=== PATIENT | female | born 1990 | race Caucasian/White ===

== ENCOUNTER 2019-01-08 11:08 | Inpatient (IN) | payer MEDICARE, MEDICAID ==
[2019-01-08] MEDS ORDERED: Albuterol 8 GM Inhaler INH PRN (13:21)
--- NOTE | 2019-01-08 13:31 | PCM.HP.2 ---
H&P History of Present Illness - General Date of Service: 01/08/19 Admit Problem/Dx: Admission Diagnosis/Problem Admission Diagnosis/Problem Abdominal abscess Abdominal wound, Dressing Changes and IV antibiotics Source of Information: Patient History Limitations: Reports: Altered Mental Status (She has had multiple concussions and alcohol abuse, her memory is poor per her report) - History of Present Illness Initial Comments - Free Text/Narative: Patient is being admitted to [facility] care today for abdominal wound dressing changes and IV antibiotics for Vancomycin. Patient has abdominal abscess due to foreign body. This was believes to have been related to a previous g-tube. She has an open wound to the abdomen, which is covered with a dressing. She requires daily dressing changes to this area. She has no abdominal pain or concerns with this. She has a colostomy as well. She is able to care for this herself. She was diagnosed with MRSA+ bacteremia and is receiving Vancomycin TID. This is scheduled to go through 01/20/19. She receives this via a PICC line. Patient also has a seizure that started this episode of care, while awaiting sentencing. She was treated with Keppra and has been seizure free. She was prophylactic treated with Rocephin at [place] for aspiration pneumonia post seizure. She never developed pneumonia symptoms. She will be here for about 12 days for IVs and abdominal wound care. - Related Data Allergies/Adverse Reactions: Allergies Allergy/AdvReac Type Severity Reaction Status Date / Time sumatriptan Allergy Other Verified 01/08/19 11:00 Home Medications: Home Meds Acetaminophen [Pain & Fever] 500 mg PO Q4HR PRN 01/08/19 [History] Albuterol Sulfate [Proair Hfa] 2 puff INH Q4HR PRN 01/08/19 [History] Calcium Carbonate [Calcium] 1,000 mg PO DAILY 01/08/19 [History] Folic Acid 1 mg PO DAILY 01/08/19 [History] Heparin Sodium,Porcine/PF [Heparin 500 Unit/5 ml (100/ml)] 500 units IV ASDIRECTED PRN 01/08/19 [History] LORazepam [Ativan] 2 mg IM Q2HR PRN 01/08/19 [History] Magnesium Oxide [Magnesium] 400 mg PO BID 01/08/19 [History] Nicotine [Nicotine Patch] 21 mg TD DAILY 01/08/19 [History] Sennosides/Docusate Sodium [Senna-Docusate Sodium Tablet] 2 tab PO BID 01/08/19 [History] Sertraline [Zoloft] 150 mg PO DAILY 01/08/19 [History] Thiamine [Vitamin B-1] 100 mg PO BID 01/08/19 [History] Vancomycin/0.9 % Sod Chloride [Vanco 1 Gram/250 ml-0.9% NaCl] 1 gm IV Q8HR 01/08 [History] Vitamin B Complex [B Complex] 1 tab PO DAILY 01/08/19 [History] cloNIDine [Catapres] 0.1 mg PO BEDTIME 01/08/19 [History] diphenhydrAMINE HCl [Benadryl] 25 mg PO Q6HR PRN 01/08/19 [History] hydrOXYzine HCl [Hydroxyzine HCl] 25 mg PO TID PRN 01/08/19 [History] levETIRAcetam [Keppra] 1,000 mg PO BID 01/08/19 [History] Past Medical History Cardiovascular History: Reports: Hypertension Respiratory History: Reports: Asthma, Intubation, Previous, Pneumonia, Recurrent Gastrointestinal History: Reports: Other (See Below) Other Gastrointestinal History: Abscess of liver Genitourinary History: Reports: Other (See Below) Other Genitourinary History: Acute Kidney disease Neurological History: Reports: Migraines Psychiatric History: Reports: Addiction, Anxiety, Depression, Emotional Problems , Suicide Attempt Hematologic History: Reports: B12 Deficiency, Folic Acid, Iron Deficiency - Past Surgical History HEENT Surgical History: Reports: Oral Surgery GI Surgical History: Reports: Bariatric Procedure, Colostomy Social & Family History - Tobacco Use Smoking Status *Q: Former Smoker Years of Tobacco use: 17 Packs/Tins Daily: 1 Used Tobacco, but Quit: Yes Month/Year Tobacco Last Used: 11/2018 Second Hand Smoke Exposure: No - Caffeine Use Caffeine Use: Reports: Coffee, Soda - Alcohol Use Days Per Week of Alcohol Use: 7 Number of Drinks Per Day: 20 Total Drinks Per Week: 140 Date of Last Drink: 12/21/18 - Recreational Drug Use Recreational Drug Use: Yes Recreational Drug Type: Reports: Amphetamines (Speed), Heroin, Marijuana/Hashish , Methamphetamine Recreational Drug Use Frequency: Daily H&P Review of Systems - Review of Systems: Review Of Systems: See Below General: Reports: No Symptoms HEENT: Reports: No Symptoms Pulmonary: Reports: No Symptoms Cardiovascular: Reports: No Symptoms Gastrointestinal: Reports: No Symptoms, Diarrhea (This is expected with her colostomy) Genitourinary: Reports: No Symptoms Musculoskeletal: Reports: Back Pain (Occasionally, Tylenol and walking around are helpful) Skin: Reports: Wound Psychiatric: Reports: No Symptoms Neurological: Reports: Seizure, Other (She has delayed processes due to concussions and loss of memory) Immunologic: Reports: No Symptoms Exam - Exam Exam: See Below - Exam Quality Assessment: Central Line/PICC General: Alert, Oriented, Cooperative HEENT: Conjunctiva Clear, EACs Clear, EOMI, Hearing Intact, Mucosa Moist & Mullens , Pupils Equal, Pupils Reactive Neck: Supple, Trachea Midline Lungs: Clear to Auscultation, Normal Respiratory Effort Cardiovascular: Regular Rate, Regular Rhythm, Normal S1, Normal S2 GI/Abdominal Exam: Normal Bowel Sounds, Soft, Non-Tender, No Distention, Other ( Colostomy bag present) (Female) Exam: Deferred Rectal (Female) Exam: Deferred Back Exam: Normal Inspection, Full Range of Motion Extremities: Normal Inspection, Normal Range of Motion, No Pedal Edema Skin: Wound Neuro Extensive - Mental Status: Alert, Oriented x3, Memory Loss-Remote Events Psychiatric: Alert, Normal Affect, Normal Mood - Problem List (1) Open wound of abdominal wall SNOMED Code(s): 358316429 ICD Code: S31.109A - UNSP OPN WND ABD WALL, UNSP Q W/O PENET PERIT CAV, INIT Status: Acute Current Visit: Yes Problem Details: Dressing chagnes will be completed aily along wtih TID Vancomycin for MRSA+ skin infection. She has orders for Twice weekly creatinine and Vanco peak/trough levels. Vancomycin is scheduled to be completed on 01/20/19. (2) MRSA bacteremia SNOMED Code(s): 48607971857352079 ICD Code: R78.81 - BACTEREMIA Status: Acute Current Visit: Yes Problem Details: patient will receive her antibiotics of Vancomycin TID. Last dose is scheduled for 01/20/19. (3) Status epilepticus SNOMED Code(s): 852575204 ICD Code: G40.901 - EPILEPSY, UNSP, NOT INTRACTABLE, WITH STATUS EPILEPTICUS Status: Acute Current Visit: Yes Problem Details: Patient had seizure while in custody. She was placed on keppra and has been seizure free. She was given prophylactic doses of Rocephin while in [place] for possible aspiration pneumonia. No breathing difficulties noted. (4) Hypomagnesemia SNOMED Code(s): 896911243 ICD Code: E83.42 - HYPOMAGNESEMIA Status: Acute Current Visit: Yes Problem Details: Monitor levels of Magnesium along with other vitamins and electrolytes. Has a hsitory of malnutrition r/t gastric bypass. (5) History of gastric bypass SNOMED Code(s): 169094603 ICD Code: Z98.84 - BARIATRIC SURGERY STATUS Status: Acute Current Visit: Yes Problem Details: Will monitor weight and nutrition levels via lab work. Has a history of malnutrition post gastric bypass. Problem List Initiated/Reviewed/Updated: Yes Orders Last 24hrs: Active Orders 24 hr Category Date Time Status Patient Status [ADT] Routine ADT 01/08/19 13:16 Ordered Ambulate [RC] ASDIRECTED Care 01/08/19 13:16 Ordered Communication Order [RC] ASDIRECTED Care 01/08/19 13:19 Ordered Dressing Change [Wound Care] [RC] DAILY Care 01/08/19 13:20 Ordered Height and Weight [RC] PER UNIT ROUTINE Care 01/08/19 13:18 Ordered Intake and Output [RC] ASDIRECTED Care 01/08/19 13:16 Ordered Oxygen Therapy [RC] PRN Care 01/08/19 13:16 Ordered Up ad Olga [RC] ASDIRECTED Care 01/08/19 13:16 Ordered VTE/DVT Education [RC] PER UNIT ROUTINE Care 01/08/19 13:16 Ordered Vital Signs [RC] PER UNIT ROUTINE Care 01/08/19 13:16 Ordered Regular Diet [DIET] Diet 01/08/19 Dinner Ordered Acetaminophen [Tylenol Extra Strength] Med 01/08/19 13:21 Ordered 500 mg PO Q4HR PRN Albuterol [Ventolin HFA] Med 01/08/19 13:21 Ordered 2 puff INH Q4HR PRN Calcium Carbonate [Calcium] Med 01/09/19 08:00 Ordered 1,000 mg PO DAILY Docusate Sodium/Sennosides [Senna Plus] Med 01/08/19 18:00 Ordered 2 tab PO BID Folic Acid Med 01/09/19 08:00 Ordered 1 mg PO DAILY Heparin Sodium [Heparin Lock Flush 100 Units/ML] Med 01/08/19 13:21 Ordered 300 units FLUSH ASDIRECTED PRN LORazepam [Ativan] Med 01/08/19 13:21 Ordered 2 mg IM Q2HR PRN Magnesium Oxide [Magnesium] Med 01/08/19 18:00 Ordered 400 mg PO BID Nicotine [Habitrol] Med 01/09/19 08:00 Ordered 21 mg TRDERM DAILY Sertraline [Zoloft] Med 01/09/19 08:00 Ordered 150 mg PO DAILY Thiamine [Vitamin B-1] Med 01/08/19 18:00 Ordered 100 mg PO BID Vancomycin/0.9 % Sod Chloride [Vanco 1 Gram/250 ml-0.9% Med 01/08/19 16:00 Ordered NaCl] 1 gm IV Q8HR Vitamin B Complex [B Complex] Med 01/09/19 08:00 Ordered 1 tab PO DAILY cloNIDine [Catapres] Med 01/08/19 20:00 Ordered 0.1 mg PO BEDTIME diphenhydrAMINE [Benadryl] Med 01/08/19 13:21 Ordered 25 mg PO Q6HR PRN hydrOXYzine HCl [Atarax] Med 01/08/19 13:21 Ordered 25 mg PO TID PRN levETIRAcetam [Keppra] Med 01/08/19 18:00 Ordered 1,000 mg PO BID Resuscitation Status Routine Resus Stat 01/08/19 13:16 Ordered - Mortality Measure Prognosis:: Good
[2019-01-08] MEDS: Sodium Chloride 0.9% 10 ML Syringe FLUSH SCH ×4 (15:20→23:05)
[2019-01-08] MEDS: diphenhydrAMINE 25 MG Cap PO PRN ×2 (15:20→21:09)
[2019-01-08] MEDS ORDERED: SOD CHLORIDE IV SCH (16:00)
[2019-01-08] MEDS ORDERED: VANCOMYCIN IV SCH (16:00)
[2019-01-08] MEDS ORDERED: [UNRECOGNIZED DRUG - OTHER] IV SCH (16:00)
[2019-01-08] MEDS: Sodium Chloride 0.9% 10 ML Syringe FLUSH PRN (17:09)
[2019-01-08] MEDS: Magnesium Oxide 400 MG Tab PO SCH (18:03)
[2019-01-08] MEDS: Thiamine 100 MG Tab PO SCH (18:03)
[2019-01-08] MEDS: levETIRAcetam 500 MG Tab PO SCH (18:04)
[2019-01-08] MEDS: cloNIDine 0.1 MG Tab PO SCH (20:22)
[2019-01-08] MEDS: Acetaminophen 500 MG Tab PO PRN (20:22)
[2019-01-08] MEDS: Aluminum Hydroxide/Magnesium Hydroxide/Simethicone Susp 30 ML Cup PO PRN (20:23)
[2019-01-09] MEDS: hydrOXYzine HCl 25 MG Tab PO PRN (01:51)
[2019-01-09] MEDS: diphenhydrAMINE 25 MG Cap PO PRN ×3 (05:17→21:07)
[2019-01-09] MEDS: Sodium Chloride 0.9% 10 ML Syringe FLUSH SCH ×6 (05:56→22:44)
[2019-01-09] MEDS: levETIRAcetam 500 MG Tab PO SCH ×2 (07:44→17:00)
[2019-01-09] MEDS: Sertraline 50 MG Tab PO SCH (07:45)
[2019-01-09] MEDS: Thiamine 100 MG Tab PO SCH ×2 (07:45→17:01)
[2019-01-09] MEDS: Folic Acid 1 MG Tab PO SCH (07:46)
[2019-01-09] MEDS: Calcium Carbonate 500 MG Tab.Chew PO SCH (07:47)
[2019-01-09] MEDS: Nicotine 21 MG/24 Hr Patch TRDERM SCH (07:48)
[2019-01-09] MEDS: Remove Patch NICOTINE PATCH TRDERM SCH (07:50)
[2019-01-09] MEDS: Vitamin B Complex Tab PO SCH (07:51)
[2019-01-09] MEDS: Magnesium Oxide 400 MG Tab PO SCH ×2 (07:52→17:00)
[2019-01-09] MEDS: Acetaminophen 500 MG Tab PO PRN (08:10)
[2019-01-09] MEDS: Sodium Chloride 0.9% 10 ML Syringe FLUSH PRN (08:15)
[2019-01-09 09:01] LABS: CHLORIDE,CL 106 mmol/L (98-107); SODIUM,NA 140 mmol/L (136-145)
[2019-01-09] MEDS: Aluminum Hydroxide/Magnesium Hydroxide/Simethicone Susp 30 ML Cup PO PRN ×2 (11:07→20:07)
[2019-01-09] MEDS: LORazepam 2 MG/ML SDV IM PRN ×2 (15:59→23:26)
[2019-01-09] MEDS: cloNIDine 0.1 MG Tab PO SCH (20:07)
[2019-01-10] MEDS: Sodium Chloride 0.9% 10 ML Syringe FLUSH SCH ×6 (06:05→22:34)
[2019-01-10] MEDS: Sertraline 50 MG Tab PO SCH ×2 (06:09→08:32)
[2019-01-10] MEDS: Calcium Carbonate 500 MG Tab.Chew PO SCH ×2 (06:10→08:32)
[2019-01-10] MEDS: Aluminum Hydroxide/Magnesium Hydroxide/Simethicone Susp 30 ML Cup PO PRN ×2 (07:52→21:02)
[2019-01-10] MEDS: Folic Acid 1 MG Tab PO SCH (07:54)
[2019-01-10] MEDS: Vitamin B Complex Tab PO SCH (07:54)
[2019-01-10] MEDS: Thiamine 100 MG Tab PO SCH ×2 (07:55→17:44)
[2019-01-10] MEDS: levETIRAcetam 500 MG Tab PO SCH ×2 (07:55→17:44)
[2019-01-10] MEDS: Magnesium Oxide 400 MG Tab PO SCH ×2 (07:55→17:44)
[2019-01-10] MEDS: Nicotine 21 MG/24 Hr Patch TRDERM SCH (07:56)
[2019-01-10] MEDS: Remove Patch NICOTINE PATCH TRDERM SCH (07:58)
[2019-01-10] MEDS: LORazepam 2 MG/ML SDV IM PRN ×2 (08:09→14:54)
[2019-01-10] MEDS: Sodium Chloride 0.9% 10 ML Syringe FLUSH PRN ×2 (13:40→14:47)
[2019-01-10] MEDS: diphenhydrAMINE 25 MG Cap PO PRN ×2 (14:55→21:02)
[2019-01-10] MEDS: Acetaminophen 500 MG Tab PO PRN ×2 (14:55→21:01)
[2019-01-10] MEDS: cloNIDine 0.1 MG Tab PO SCH (19:47)
[2019-01-10] MEDS: hydrOXYzine HCl 25 MG Tab PO PRN (21:01)
[2019-01-10] MEDS: LORazepam 1 MG Tab PO PRN (21:02)
[2019-01-11] MEDS: Acetaminophen 500 MG Tab PO PRN ×4 (04:58→20:58)
[2019-01-11] MEDS: Sodium Chloride 0.9% 10 ML Syringe FLUSH SCH ×6 (05:01→22:42)
[2019-01-11] MEDS: Vitamin B Complex Tab PO SCH (07:24)
[2019-01-11] MEDS: Calcium Carbonate 500 MG Tab.Chew PO SCH (07:24)
[2019-01-11] MEDS: Thiamine 100 MG Tab PO SCH ×2 (07:25→17:34)
[2019-01-11] MEDS: Nicotine 21 MG/24 Hr Patch TRDERM SCH (07:25)
[2019-01-11] MEDS: levETIRAcetam 500 MG Tab PO SCH ×2 (07:25→17:34)
[2019-01-11] MEDS: Folic Acid 1 MG Tab PO SCH (07:25)
[2019-01-11] MEDS: Magnesium Oxide 400 MG Tab PO SCH ×2 (07:25→17:33)
[2019-01-11] MEDS: Sertraline 50 MG Tab PO SCH (07:25)
[2019-01-11] MEDS: Remove Patch NICOTINE PATCH TRDERM SCH (07:26)
[2019-01-11] MEDS: Aluminum Hydroxide/Magnesium Hydroxide/Simethicone Susp 30 ML Cup PO PRN ×2 (07:26→20:59)
[2019-01-11] MEDS: LORazepam 1 MG Tab PO PRN ×2 (09:02→17:34)
[2019-01-11] MEDS: diphenhydrAMINE 25 MG Cap PO PRN ×2 (09:08→16:28)
[2019-01-11] MEDS: Sodium Chloride 0.9% 10 ML Syringe FLUSH PRN (09:45)
[2019-01-11] MEDS: hydrOXYzine HCl 25 MG Tab PO PRN (20:58)
[2019-01-11] MEDS: cloNIDine 0.1 MG Tab PO SCH (20:59)
[2019-01-12] MEDS: Sodium Chloride 0.9% 10 ML Syringe FLUSH SCH ×6 (06:13→23:31)
[2019-01-12] MEDS: diphenhydrAMINE 25 MG Cap PO PRN ×3 (06:19→21:10)
[2019-01-12] MEDS: Calcium Carbonate 500 MG Tab.Chew PO SCH (07:46)
[2019-01-12] MEDS: Folic Acid 1 MG Tab PO SCH (07:47)
[2019-01-12] MEDS: Thiamine 100 MG Tab PO SCH ×2 (07:47→17:39)
[2019-01-12] MEDS: Magnesium Oxide 400 MG Tab PO SCH ×2 (07:47→17:39)
[2019-01-12] MEDS: Vitamin B Complex Tab PO SCH (07:47)
[2019-01-12] MEDS: Nicotine 21 MG/24 Hr Patch TRDERM SCH (07:47)
[2019-01-12] MEDS: levETIRAcetam 500 MG Tab PO SCH ×2 (07:47→17:39)
[2019-01-12] MEDS: Sertraline 50 MG Tab PO SCH (07:47)
[2019-01-12] MEDS: Remove Patch NICOTINE PATCH TRDERM SCH (07:48)
[2019-01-12] MEDS: Aluminum Hydroxide/Magnesium Hydroxide/Simethicone Susp 30 ML Cup PO PRN ×3 (07:48→21:10)
[2019-01-12] MEDS: LORazepam 1 MG Tab PO PRN ×2 (11:24→20:01)
[2019-01-12] MEDS: Acetaminophen 500 MG Tab PO PRN ×3 (11:24→21:11)
[2019-01-12] MEDS: cloNIDine 0.1 MG Tab PO SCH (20:02)
[2019-01-13] MEDS: diphenhydrAMINE 25 MG Cap PO PRN ×4 (04:01→23:39)
[2019-01-13] MEDS: Sodium Chloride 0.9% 10 ML Syringe FLUSH SCH ×6 (05:54→23:22)
[2019-01-13] MEDS: Aluminum Hydroxide/Magnesium Hydroxide/Simethicone Susp 30 ML Cup PO PRN ×2 (06:36→17:22)
[2019-01-13] MEDS: Vitamin B Complex Tab PO SCH (07:41)
[2019-01-13] MEDS: Calcium Carbonate 500 MG Tab.Chew PO SCH (07:41)
[2019-01-13] MEDS: Sertraline 50 MG Tab PO SCH (07:41)
[2019-01-13] MEDS: levETIRAcetam 500 MG Tab PO SCH ×2 (07:41→17:21)
[2019-01-13] MEDS: Magnesium Oxide 400 MG Tab PO SCH ×2 (07:41→17:21)
[2019-01-13] MEDS: Thiamine 100 MG Tab PO SCH ×2 (07:41→17:21)
[2019-01-13] MEDS: Nicotine 21 MG/24 Hr Patch TRDERM SCH (07:41)
[2019-01-13] MEDS: Folic Acid 1 MG Tab PO SCH (07:41)
[2019-01-13] MEDS: Remove Patch NICOTINE PATCH TRDERM SCH (07:42)
[2019-01-13] MEDS: Acetaminophen 500 MG Tab PO PRN ×3 (11:11→23:38)
[2019-01-13] MEDS: LORazepam 1 MG Tab PO PRN ×2 (11:12→20:02)
[2019-01-13] MEDS: cloNIDine 0.1 MG Tab PO SCH (20:03)
[2019-01-14] MEDS: Acetaminophen 500 MG Tab PO PRN ×3 (06:04→20:38)
[2019-01-14] MEDS: diphenhydrAMINE 25 MG Cap PO PRN ×3 (06:04→20:38)
[2019-01-14] MEDS: Sodium Chloride 0.9% 10 ML Syringe FLUSH SCH ×5 (06:05→22:53)
[2019-01-14] MEDS: Vitamin B Complex Tab PO SCH (08:08)
[2019-01-14] MEDS: Sertraline 50 MG Tab PO SCH (08:08)
[2019-01-14] MEDS: Folic Acid 1 MG Tab PO SCH (08:08)
[2019-01-14] MEDS: levETIRAcetam 500 MG Tab PO SCH ×2 (08:08→17:16)
[2019-01-14] MEDS: Thiamine 100 MG Tab PO SCH ×2 (08:08→17:16)
[2019-01-14] MEDS: Calcium Carbonate 500 MG Tab.Chew PO SCH (08:08)
[2019-01-14] MEDS: Magnesium Oxide 400 MG Tab PO SCH ×2 (08:09→17:16)
[2019-01-14] MEDS: Nicotine 21 MG/24 Hr Patch TRDERM SCH (08:09)
[2019-01-14] MEDS: Remove Patch NICOTINE PATCH TRDERM SCH (08:10)
[2019-01-14] MEDS: LORazepam 1 MG Tab PO PRN ×2 (08:51→18:18)
[2019-01-14] MEDS: Aluminum Hydroxide/Magnesium Hydroxide/Simethicone Susp 30 ML Cup PO PRN (12:17)
[2019-01-14] MEDS: cloNIDine 0.1 MG Tab PO SCH (20:38)
[2019-01-14] MEDS: hydrOXYzine HCl 25 MG Tab PO PRN (22:53)
[2019-01-15] MEDS: Sodium Chloride 0.9% 10 ML Syringe FLUSH SCH ×7 (00:28→22:24)
[2019-01-15] MEDS: Acetaminophen 500 MG Tab PO PRN ×3 (02:40→20:36)
[2019-01-15] MEDS: LORazepam 1 MG Tab PO PRN ×3 (02:40→22:24)
[2019-01-15] MEDS: diphenhydrAMINE 25 MG Cap PO PRN ×3 (02:40→22:25)
[2019-01-15] MEDS: Vitamin B Complex Tab PO SCH (07:17)
[2019-01-15] MEDS: Magnesium Oxide 400 MG Tab PO SCH ×2 (07:17→17:19)
[2019-01-15] MEDS: Sertraline 50 MG Tab PO SCH (07:17)
[2019-01-15] MEDS: Multivitamin Tab PO SCH (07:17)
[2019-01-15] MEDS: Folic Acid 1 MG Tab PO SCH (07:17)
[2019-01-15] MEDS: Calcium Carbonate 500 MG Tab.Chew PO SCH (07:17)
[2019-01-15] MEDS: Aluminum Hydroxide/Magnesium Hydroxide/Simethicone Susp 30 ML Cup PO PRN ×2 (07:18→17:20)
[2019-01-15] MEDS: levETIRAcetam 500 MG Tab PO SCH ×2 (07:18→17:20)
[2019-01-15] MEDS: Thiamine 100 MG Tab PO SCH ×2 (07:18→17:19)
[2019-01-15] MEDS: Remove Patch NICOTINE PATCH TRDERM SCH (08:58)
[2019-01-15] MEDS: Nicotine 21 MG/24 Hr Patch TRDERM SCH (08:58)
[2019-01-15] MEDS: hydrOXYzine HCl 25 MG Tab PO PRN (17:19)
[2019-01-15] MEDS: cloNIDine 0.1 MG Tab PO SCH (20:36)
[2019-01-16] MEDS: Sodium Chloride 0.9% 10 ML Syringe FLUSH SCH ×8 (00:08→22:54)
[2019-01-16] MEDS: Vitamin B Complex Tab PO SCH (07:25)
[2019-01-16] MEDS: Multivitamin Tab PO SCH (07:25)
[2019-01-16] MEDS: Calcium Carbonate 500 MG Tab.Chew PO SCH (07:25)
[2019-01-16] MEDS: Thiamine 100 MG Tab PO SCH ×2 (07:25→17:00)
[2019-01-16] MEDS: Sertraline 50 MG Tab PO SCH (07:26)
[2019-01-16] MEDS: levETIRAcetam 500 MG Tab PO SCH ×2 (07:26→17:00)
[2019-01-16] MEDS: Folic Acid 1 MG Tab PO SCH (07:27)
[2019-01-16] MEDS: Magnesium Oxide 400 MG Tab PO SCH ×2 (07:28→17:01)
[2019-01-16] MEDS: Remove Patch NICOTINE PATCH TRDERM SCH (07:29)
[2019-01-16] MEDS: Nicotine 21 MG/24 Hr Patch TRDERM SCH (07:30)
[2019-01-16] MEDS: Acetaminophen 500 MG Tab PO PRN ×3 (07:40→21:12)
[2019-01-16] MEDS: Aluminum Hydroxide/Magnesium Hydroxide/Simethicone Susp 30 ML Cup PO PRN ×2 (08:42→17:43)
[2019-01-16] MEDS: LORazepam 1 MG Tab PO PRN ×2 (12:26→21:14)
[2019-01-16] MEDS: diphenhydrAMINE 25 MG Cap PO PRN ×2 (15:20→21:13)
[2019-01-16] MEDS: cloNIDine 0.1 MG Tab PO SCH (21:12)
[2019-01-17] MEDS: Sodium Chloride 0.9% 10 ML Syringe FLUSH SCH ×6 (06:04→23:09)
[2019-01-17] MEDS: Acetaminophen 500 MG Tab PO PRN ×2 (06:08→14:05)
[2019-01-17] MEDS: diphenhydrAMINE 25 MG Cap PO PRN ×3 (06:08→21:32)
[2019-01-17] MEDS: LORazepam 1 MG Tab PO PRN ×3 (06:28→23:20)
[2019-01-17] MEDS: Magnesium Oxide 400 MG Tab PO SCH ×2 (07:19→17:35)
[2019-01-17] MEDS: Calcium Carbonate 500 MG Tab.Chew PO SCH (07:19)
[2019-01-17] MEDS: Multivitamin Tab PO SCH (07:19)
[2019-01-17] MEDS: Sertraline 50 MG Tab PO SCH (07:19)
[2019-01-17] MEDS: Thiamine 100 MG Tab PO SCH ×2 (07:19→17:35)
[2019-01-17] MEDS: levETIRAcetam 500 MG Tab PO SCH ×2 (07:19→17:35)
[2019-01-17] MEDS: Vitamin B Complex Tab PO SCH (07:19)
[2019-01-17] MEDS: Folic Acid 1 MG Tab PO SCH (07:19)
[2019-01-17] MEDS: Aluminum Hydroxide/Magnesium Hydroxide/Simethicone Susp 30 ML Cup PO PRN ×2 (08:16→17:44)
[2019-01-17] MEDS: Nicotine 21 MG/24 Hr Patch TRDERM SCH (17:35)
[2019-01-17] MEDS: Remove Patch NICOTINE PATCH TRDERM SCH (17:35)
[2019-01-17] MEDS: hydrOXYzine HCl 25 MG Tab PO PRN (17:36)
[2019-01-17] MEDS: cloNIDine 0.1 MG Tab PO SCH (21:32)
[2019-01-18] MEDS: Sodium Chloride 0.9% 10 ML Syringe FLUSH SCH ×6 (06:10→23:29)
[2019-01-18] MEDS: Acetaminophen 500 MG Tab PO PRN ×2 (06:13→10:38)
[2019-01-18] MEDS: Vitamin B Complex Tab PO SCH (07:58)
[2019-01-18] MEDS: Folic Acid 1 MG Tab PO SCH (07:58)
[2019-01-18] MEDS: levETIRAcetam 500 MG Tab PO SCH ×2 (07:58→17:57)
[2019-01-18] MEDS: Thiamine 100 MG Tab PO SCH ×2 (07:58→17:58)
[2019-01-18] MEDS: Multivitamin Tab PO SCH (07:58)
[2019-01-18] MEDS: Calcium Carbonate 500 MG Tab.Chew PO SCH (07:58)
[2019-01-18] MEDS: Magnesium Oxide 400 MG Tab PO SCH ×2 (07:58→17:56)
[2019-01-18] MEDS: Sertraline 50 MG Tab PO SCH (07:59)
[2019-01-18] MEDS: Remove Patch NICOTINE PATCH TRDERM SCH (08:02)
[2019-01-18] MEDS: Sodium Chloride 0.9% 10 ML Syringe FLUSH PRN (08:02)
[2019-01-18] MEDS: Nicotine 21 MG/24 Hr Patch TRDERM SCH (08:06)
[2019-01-18] MEDS: LORazepam 1 MG Tab PO PRN ×2 (10:38→19:31)
[2019-01-18] MEDS: diphenhydrAMINE 25 MG Cap PO PRN ×2 (14:54→20:39)
[2019-01-18] MEDS: Aluminum Hydroxide/Magnesium Hydroxide/Simethicone Susp 30 ML Cup PO PRN (18:00)
[2019-01-18] MEDS: cloNIDine 0.1 MG Tab PO SCH (19:32)
[2019-01-19] MEDS: diphenhydrAMINE 25 MG Cap PO PRN ×3 (03:08→21:33)
[2019-01-19] MEDS: Acetaminophen 500 MG Tab PO PRN ×4 (03:08→21:33)
[2019-01-19] MEDS: LORazepam 1 MG Tab PO PRN ×3 (03:38→19:37)
[2019-01-19] MEDS: Sodium Chloride 0.9% 10 ML Syringe FLUSH SCH ×6 (06:23→23:16)
[2019-01-19] MEDS: Sertraline 50 MG Tab PO SCH (07:30)
[2019-01-19] MEDS: Calcium Carbonate 500 MG Tab.Chew PO SCH (07:31)
[2019-01-19] MEDS: levETIRAcetam 500 MG Tab PO SCH ×2 (07:31→17:09)
[2019-01-19] MEDS: Folic Acid 1 MG Tab PO SCH (07:31)
[2019-01-19] MEDS: Thiamine 100 MG Tab PO SCH ×2 (07:31→17:10)
[2019-01-19] MEDS: Vitamin B Complex Tab PO SCH (07:31)
[2019-01-19] MEDS: Magnesium Oxide 400 MG Tab PO SCH ×2 (07:31→17:09)
[2019-01-19] MEDS: Multivitamin Tab PO SCH (07:31)
[2019-01-19] MEDS: Nicotine 21 MG/24 Hr Patch TRDERM SCH (07:35)
[2019-01-19] MEDS: Remove Patch NICOTINE PATCH TRDERM SCH (07:35)
[2019-01-19] MEDS: Sodium Chloride 0.9% 10 ML Syringe FLUSH PRN (07:36)
[2019-01-19] MEDS: Aluminum Hydroxide/Magnesium Hydroxide/Simethicone Susp 30 ML Cup PO PRN (17:13)
[2019-01-19] MEDS: cloNIDine 0.1 MG Tab PO SCH (19:36)
[2019-01-20] MEDS: Acetaminophen 500 MG Tab PO PRN ×5 (04:21→21:23)
[2019-01-20] MEDS: LORazepam 1 MG Tab PO PRN ×3 (04:22→21:27)
[2019-01-20] MEDS: diphenhydrAMINE 25 MG Cap PO PRN ×3 (04:24→17:20)
[2019-01-20] MEDS: Sodium Chloride 0.9% 10 ML Syringe FLUSH SCH ×6 (05:51→23:06)
[2019-01-20] MEDS: Sodium Chloride 0.9% 10 ML Syringe FLUSH PRN (07:36)
[2019-01-20] MEDS: Folic Acid 1 MG Tab PO SCH (07:36)
[2019-01-20] MEDS: Multivitamin Tab PO SCH (07:37)
[2019-01-20] MEDS: Sertraline 50 MG Tab PO SCH (07:37)
[2019-01-20] MEDS: Magnesium Oxide 400 MG Tab PO SCH ×2 (07:37→17:20)
[2019-01-20] MEDS: Thiamine 100 MG Tab PO SCH ×2 (07:37→17:20)
[2019-01-20] MEDS: Calcium Carbonate 500 MG Tab.Chew PO SCH (07:37)
[2019-01-20] MEDS: Vitamin B Complex Tab PO SCH (07:37)
[2019-01-20] MEDS: levETIRAcetam 500 MG Tab PO SCH ×2 (07:37→17:20)
[2019-01-20] MEDS: Remove Patch NICOTINE PATCH TRDERM SCH (07:42)
[2019-01-20] MEDS: Nicotine 21 MG/24 Hr Patch TRDERM SCH (07:43)
[2019-01-20] MEDS: hydrOXYzine HCl 25 MG Tab PO PRN ×2 (08:10→16:11)
[2019-01-20] MEDS: Aluminum Hydroxide/Magnesium Hydroxide/Simethicone Susp 30 ML Cup PO PRN (16:07)
[2019-01-20] MEDS: cloNIDine 0.1 MG Tab PO SCH (20:51)
[2019-01-21] MEDS: diphenhydrAMINE 25 MG Cap PO PRN ×2 (02:36→13:11)
[2019-01-21] MEDS: Sodium Chloride 0.9% 10 ML Syringe FLUSH SCH ×3 (06:04→13:13)
[2019-01-21] MEDS: LORazepam 1 MG Tab PO PRN ×2 (06:04→14:20)
[2019-01-21] MEDS: Acetaminophen 500 MG Tab PO PRN ×2 (06:05→13:11)
[2019-01-21] MEDS: hydrOXYzine HCl 25 MG Tab PO PRN (06:06)
[2019-01-21] MEDS: Folic Acid 1 MG Tab PO SCH (07:55)
[2019-01-21] MEDS: levETIRAcetam 500 MG Tab PO SCH (07:56)
[2019-01-21] MEDS: Nicotine 21 MG/24 Hr Patch TRDERM SCH (07:56)
[2019-01-21] MEDS: Magnesium Oxide 400 MG Tab PO SCH (07:56)
[2019-01-21] MEDS: Multivitamin Tab PO SCH (07:57)
[2019-01-21] MEDS: Remove Patch NICOTINE PATCH TRDERM SCH (07:57)
[2019-01-21] MEDS: Calcium Carbonate 500 MG Tab.Chew PO SCH (07:58)
[2019-01-21] MEDS: Vitamin B Complex Tab PO SCH (07:58)
[2019-01-21] MEDS: Thiamine 100 MG Tab PO SCH (07:58)
[2019-01-21] MEDS: Sertraline 50 MG Tab PO SCH (07:58)
[2019-01-21] MEDS: Aluminum Hydroxide/Magnesium Hydroxide/Simethicone Susp 30 ML Cup PO PRN ×2 (07:58→13:16)
--- NOTE | 2019-01-21 14:06 | PCM.DCSUM1 ---
Discharge Summary - Hospital Course Free Text/Narrative:: Patient is being discharged today from [facility] into the care of her father. He will pick her up and [facility] to the [facility] right away. She was in [facility] care of PICC line antibiotics for abdominal infection that is MRSA +. She had an abdominal wound that was receiving dressing changes and this is healing well. She has an ostomy that she is able to care for self. She is having some skin breakdown noted. She was given instruction about care for this and barrier cream to allow area to heal. Patient is having quite a bit of anxiety today. She has a PRN order for Ativan that she will receive before she goes. We discussed her anxiety. She states that she is anxious about returning to [facility]. She also recently found out her mom , her moved in with another woman and she has a colostomy. She feels like she just has a lot going on at this time. She denies any questions about her care. I advised her to sign a [facility] information at the [facility] so we can forward her hospital records there. She was understanding of this. Diagnosis: Stroke: No - Discharge Data Discharge Date: 01/21/19 Discharge Disposition: Home, Self-Care 01 Condition: Good - Referral to Home Health Primary Care Physician: Zion Simons Sr, MD - Discharge Diagnosis/Problem(s) (1) Open wound of abdominal wall SNOMED Code(s): 569223716 ICD Code: S31.109A - UNSP OPN WND ABD WALL, UNSP Q W/O PENET PERIT CAV, INIT Status: Acute Current Visit: Yes Problem Details: Dressing chagnes will be completed aily along wtih TID Vancomycin for MRSA+ skin infection. She has orders for Twice weekly creatinine and Vanco peak/trough levels. Vancomycin is scheduled to be completed on 01/20/19. (2) MRSA bacteremia SNOMED Code(s): 32919636210210049 ICD Code: R78.81 - BACTEREMIA Status: Acute Current Visit: Yes Problem Details: patient will receive her antibiotics of Vancomycin TID. Last dose is scheduled for 01/20/19. (3) Status epilepticus SNOMED Code(s): 424973925 ICD Code: G40.901 - EPILEPSY, UNSP, NOT INTRACTABLE, WITH STATUS EPILEPTICUS Status: Acute Current Visit: Yes Problem Details: Patient had seizure while in custody. She was placed on keppra and has been seizure free. She was given prophylactic doses of Rocephin while in [place] for possible aspiration pneumonia. No breathing difficulties noted. (4) Hypomagnesemia SNOMED Code(s): 693556402 ICD Code: E83.42 - HYPOMAGNESEMIA Status: Acute Current Visit: Yes Problem Details: Monitor levels of Magnesium along with other vitamins and electrolytes. Has a hsitory of malnutrition r/t gastric bypass. (5) History of gastric bypass SNOMED Code(s): 394299337 ICD Code: Z98.84 - BARIATRIC SURGERY STATUS Status: Acute Current Visit: Yes Problem Details: Will monitor weight and nutrition levels via lab work. Has a history of malnutrition post gastric bypass. - Patient Instructions Diet: Usual Diet as Tolerated Activity: As Tolerated Showering/Bathing: May Shower Notify Provider of: Fever, Increased Pain, Swelling and Redness - Discharge Plan *PRESCRIPTION DRUG MONITORING PROGRAM REVIEWED*: Yes *COPY OF PRESCRIPTION DRUG MONITORING REPORT IN PATIENT JOHNNY: Yes Prescriptions/Med Rec: Albuterol Sulfate [Proair Hfa] 2 puff INH Q4HR PRN #1 [email or web address] PRN Reason: Shortness Of Breath Calcium Carbonate [Calcium] 1,000 mg PO DAILY 30 Days #30 tab.chew cloNIDine [Catapres] 0.1 mg PO BEDTIME 30 Days #30 tablet Folic Acid 1 mg PO DAILY 30 Days #30 tablet hydrOXYzine HCl [Hydroxyzine HCl] 25 mg PO TID PRN 30 Days #30 tablet PRN Reason: Itching levETIRAcetam [Roweepra] 1,000 mg PO BID 30 Days #120 tablet Magnesium Oxide [Magnesium] 400 mg PO BID 30 Days #60 tablet Multivitamins [Tab-A-Bertram] 1 tab PO DAILY 30 Days #30 tablet Nicotine [Nicotine Patch] 21 mg TD DAILY 30 Days #30 patch.td24 Sennosides/Docusate Sodium [Senna-Docusate Sodium Tablet] 2 tab PO BID 30 Days # 120 tablet Sertraline [Zoloft] 150 mg PO DAILY 30 Days #90 tablet Thiamine [Vitamin B-1] 100 mg PO BID 30 Days #60 tablet Vitamin B Complex [B Complex] 1 tab PO DAILY 30 Days #30 tablet Home Medications: Home Meds Acetaminophen [Pain & Fever] 500 mg PO Q4HR PRN 01/08/19 [History] diphenhydrAMINE HCl [Benadryl] 25 mg PO Q6HR PRN 01/08/19 [History] Albuterol Sulfate [Proair Hfa] 2 puff INH Q4HR PRN #1 hfa.aer.ad 01/21/19 [Rx] Alum Hydrox/Mag Hydrox/Simeth [Mag-Al Plus] 30 ml PO QID PRN cup 01/21/19 [Rx] Calcium Carbonate [Calcium] 1,000 mg PO DAILY 30 Days #30 tab.chew 01/21/19 [Rx] Folic Acid 1 mg PO DAILY 30 Days #30 tablet 01/21/19 [Rx] Magnesium Oxide [Magnesium] 400 mg PO BID 30 Days #60 tablet 01/21/19 [Rx] Multivitamins [Tab-A-Bertram] 1 tab PO DAILY 30 Days #30 tablet 01/21/19 [Rx] Nicotine [Nicotine Patch] 21 mg TD DAILY 30 Days #30 patch.td24 01/21/19 [Rx] Sennosides/Docusate Sodium [Senna-Docusate Sodium Tablet] 2 tab PO BID 30 Days # 120 tablet 01/21/19 [Rx] Sertraline [Zoloft] 150 mg PO DAILY 30 Days #90 tablet 01/21/19 [Rx] Thiamine [Vitamin B-1] 100 mg PO BID 30 Days #60 tablet 01/21/19 [Rx] Vitamin B Complex [B Complex] 1 tab PO DAILY 30 Days #30 tablet 01/21/19 [Rx] cloNIDine [Catapres] 0.1 mg PO BEDTIME 30 Days #30 tablet 01/21/19 [Rx] hydrOXYzine HCl [Hydroxyzine HCl] 25 mg PO TID PRN 30 Days #30 tablet 01/21/19 [ Rx] levETIRAcetam [Roweepra] 1,000 mg PO BID 30 Days #120 tablet 01/21/19 [Rx] Oxygen Therapy Mode: Room Air - Discharge Summary/Plan Comment DC Time >30 min.: Yes - General Info Date of Service: 01/21/19 Admission Dx/Problem (Free Text: Abdominal abscess, PICC line antibiotics Functional Status: Reports: Pain Controlled, Tolerating Diet, Ambulating - Review of Systems General: Reports: No Symptoms HEENT: Reports: No Symptoms Pulmonary: Reports: No Symptoms Gastrointestinal: Reports: Diarrhea (ostomy present) Genitourinary: Reports: No Symptoms Musculoskeletal: Reports: Back Pain (this is chronic) Skin: Reports: Other (Mild skin breakdown around ostomy site) Neurological: Reports: No Symptoms, Other (She does have some loss of memory) - Patient Data Vitals - Most Recent: Last Vital Signs Temp 98 F 01/21/19 08:00 Pulse 100 01/21/19 08:00 Resp 16 01/21/19 08:00 BP 133/84 01/21/19 08:00 Pulse Ox 100 01/21/19 08:00 Weight - Most Recent: 137 lb I&O - Last 24 hours: Intake & Output 01/20/19 01/21/19 01/21/19 22:59 06:59 14:59 Intake Total 500 600 880 Balance 500 600 880 Lab Results - Last 24 hrs: Laboratory Results - last 24 hr 01/21/19 Range/Units 08:45 WBC 6.3 (4.0-10.2) K/uL RBC 3.86 (3.77-5.09) M/uL Hgb 12.0 (11.7-15.5) g/dL Hct 37.5 (34.0-46.0) % MCV 97.2 (84.0-98.0) fL MCH 31.1 (28.2-33.3) pg MCHC 32.0 (31.7-36.0) g/dL RDW 15.5 H (11.2-14.1) % Plt Count 185 D (150-350) K/uL Neut % (Auto) 58.7 (45.0-80.0) % Lymph % (Auto) 28.1 (10.0-50.0) % Long % (Auto) 8.1 (2.0-14.0) % Eos % (Auto) 4.5 (0.0-5.0) % Baso % (Auto) 0.6 (0.0-2.0) % Neut # (Auto) 3.69 (1.40-7.00) K/uL Lymph # (Auto) 1.77 (0.50-3.50) K/uL Long # (Auto) 0.51 (0.00-1.00) K/uL Eos # (Auto) 0.28 (0.00-0.50) K/uL Baso # (Auto) 0.04 (0.00-0.20) K/uL Med Orders - Current: Current Medications Acetaminophen (Tylenol Extra Strength) 500 mg PO Q4HR PRN PRN Reason: Pain Last Admin: 01/21/19 13:11 Dose: 500 mg Al Hydroxide/Mg Hydroxide (Mag-Al Plus) 30 ml PO QID PRN PRN Reason: GI Distress Last Admin: 01/21/19 13:16 Dose: 30 ml Albuterol (Ventolin Hfa) 0 gm INH Q4HR PRN PRN Reason: Shortness of Breath Calcium Carbonate/Glycine (Tums) 1,000 mg PO DAILY [facility] Last Admin: 01/21/19 07:58 Dose: 1,000 mg Clonidine HCl (Catapres) 0.1 mg PO BEDTIME [facility] Last Admin: 01/20/19 20:51 Dose: 0.1 mg Diphenhydramine HCl (Benadryl) 25 mg PO Q6HR PRN PRN Reason: Allergies Last Admin: 01/21/19 13:11 Dose: 25 mg Folic Acid (Folic Acid) 1 mg PO DAILY [facility] Last Admin: 01/21/19 07:55 Dose: 1 mg Heparin Sodium (Porcine) (Heparin Lock Flush 100 Units/Ml) 300 units FLUSH ASDIRECTED PRN PRN Reason: Other Last Admin: 01/10/19 13:43 Dose: 300 units Heparin Sodium (Porcine) (Heparin Lock Flush 100 Units/Ml) 300 units FLUSH Q8H [facility] Last Admin: 01/21/19 07:54 Dose: 300 units Hydroxyzine HCl (Atarax) 25 mg PO TID PRN PRN Reason: Itching Last Admin: 01/21/19 06:06 Dose: 25 mg Levetiracetam (Keppra) 1,000 mg PO BID [facility] Last Admin: 01/21/19 07:56 Dose: 1,000 mg Lorazepam (Ativan) 2 mg PO Q8H PRN PRN Reason: Anxiety Last Admin: 01/21/19 06:04 Dose: 2 mg Magnesium Oxide (Magnesium Oxide) 400 mg PO BID [facility] Last Admin: 01/21/19 07:56 Dose: 400 mg Miscellaneous Information (Remove Patch) 1 ea TRDERM DAILY [facility] Last Admin: 01/21/19 07:57 Dose: 1 ea Multivitamins/Minerals/Vitamin C (Tab-A-Bertram) 1 tab PO DAILY [facility] Last Admin: 01/21/19 07:57 Dose: 1 tab Nicotine (Habitrol) 21 mg TRDERM DAILY [facility] Last Admin: 01/21/19 07:56 Dose: 21 mg Senna/Docusate Sodium (Senna Plus) 2 tab PO BID PRN PRN Reason: Constipation Last Admin: 01/20/19 17:20 Dose: 2 tab Sertraline HCl (Zoloft) 150 mg PO DAILY [facility] Last Admin: 01/21/19 07:58 Dose: 150 mg Sodium Chloride (Saline Flush) 20 ml FLUSH Q8H [facility] Last Admin: 01/21/19 13:13 Dose: 20 ml Sodium Chloride (Saline Flush) 20 ml FLUSH Q8H [facility] Last Admin: 01/21/19 07:55 Dose: 20 ml Sodium Chloride (Saline Flush) 20 ml FLUSH ASDIRECTED PRN PRN Reason: KEEP LINES OPEN Last Admin: 01/20/19 07:36 Dose: 20 ml Thiamine HCl (Vitamin B-1) 100 mg PO BID [facility] Last Admin: 01/21/19 07:58 Dose: 100 mg Vitamin B Complex (Vitamin B Complex) 1 each PO DAILY [facility] Last Admin: 01/21/19 07:58 Dose: 1 each Discontinued Medications Vancomycin HCl 1 gm/ Sodium (Chloride) 250 mls @ 165 mls/hr IV Q8H [facility] Stop: 01/21/19 14:01 Last Admin: 01/21/19 13:12 Dose: 165 mls/hr Lorazepam (Ativan) 2 mg IM Q2HR PRN PRN Reason: Anxiety Last Admin: 01/10/19 14:54 Dose: 2 mg Senna/Docusate Sodium (Senna Plus) 2 tab PO BID [facility] Last Admin: 01/11/19 17:34 Dose: Not Given - Exam Quality Assessment: Reports: Central Line/PICC General: Reports: Alert, Oriented, Cooperative HEENT: Reports: Pupils Equal, Pupils Reactive Neck: Reports: Supple Lungs: Reports: Clear to Auscultation, Normal Respiratory Effort Cardiovascular: Reports: Regular Rate, Regular Rhythm GI/Abdominal Exam: Soft, Non-Tender, Other (ostomy present to left side of abdomen) (Female) Exam: Deferred Rectal (Female) Exam: Deferred Back Exam: Reports: Normal Inspection, Full Range of Motion Extremities: Normal Inspection, Normal Range of Motion, Non-Tender, No Pedal Edema Skin: Reports: Warm, Dry Wound/Incisions: Reports: Healing Well Neurological: Reports: No New Focal Deficit Psy/Mental Status: Reports: Alert, Normal Affect, Normal Mood, Other (some flight of thoughts and memory difficulty with recall)
== END 2019-01-21 15:25 | disposition home or self-care (01) | DRG 605 ==
LOC: LL.MS 11:08
PROVIDERS: ADMIT Nurse Practitioner; ATTEND Family Medicine
DX: S31.109A Unspecified open wound of abdominal wall, unspecified quadrant without penetration into peritoneal cavity, initial encounter (principal); R78.81 Bacteremia; B95.62 Methicillin resistant Staphylococcus aureus infection as the cause of diseases classified elsewhere; G40.901 Epilepsy, unspecified, not intractable, with status epilepticus; I10 Essential (primary) hypertension; J45.909 Unspecified asthma, uncomplicated; G43.909 Migraine, unspecified, not intractable, without status migrainosus; F41.9 Anxiety disorder, unspecified; F32.9 Major depressive disorder, single episode, unspecified; E53.8 Deficiency of other specified B group vitamins; E61.1 Iron deficiency; E83.42 Hypomagnesemia; Z93.3 Colostomy status; Z88.8 Allergy status to other drugs, medicaments and biological substances; Z79.899 Other long term (current) drug therapy; Z87.01 Personal history of pneumonia (recurrent); Z87.891 Personal history of nicotine dependence; Z98.84 Bariatric surgery status
CPT/HCPCS: 36415; 80053; 80202; 81001; 82565; 82962; 85025; A9270-GY; J1642; J2060; J3370; J7050